=== PATIENT | male | born 1960 | race Caucasian/White ===

== ENCOUNTER 2019-12-25 08:51 | Emergency (ER) | payer OTHER, SELFPAY ==
[~2019-12-25] VITALS: Ht 170.2 cm; Wt 68.0 kg
[2019-12-25 09:08] VITALS: BP_SYST 123
[2019-12-25] MEDS ORDERED: NACL 0.9% 1,000 ML IV ONE (09:45)
[2019-12-25] MEDS ORDERED: KETOROLAC TROMETHAMINE 30 MG VIAL IVP ONE (09:45)
[2019-12-25 10:33] VITALS: BP_SYST 135
== END 2019-12-25 10:33 | disposition home or self-care (01) ==
LOC: SED 08:51
DX: J10.1 Influenza due to other identified influenza virus with other respiratory manifestations (principal); F17.210 Nicotine dependence, cigarettes, uncomplicated; Z20.828 Contact with and (suspected) exposure to other viral communicable diseases
CPT/HCPCS: 96361; 96374; 99283; C9803; J1885; J7030; U0003

== ENCOUNTER 2020-12-27 10:46 | Emergency (ER) | payer OTHER, SELFPAY ==
[~2020-12-27] VITALS: Ht 170.2 cm; Wt 72.6 kg
--- NOTE | 2020-12-27 10:55 | NUR ---
Pt triaged and placed in tent.
--- NOTE | 2020-12-27 11:00 | NUR ---
Pt walked in to ER with c/o flu-like symptoms, cough, cold, congestion and fever x1 week. V/S stable, no acute distress noted.
[2020-12-27 11:22] VITALS: BP_SYST 138
--- NOTE | 2020-12-27 12:10 | NUR ---
ER at bedside examining patient.
[2020-12-27] MEDS ORDERED: ALBMDI INH (13:08)
[2020-12-27] MEDS ORDERED: AMOX500C2 PO (13:08)
--- NOTE | 2020-12-27 13:10 | NUR ---
Patient given written and verbal discharge instructions and verbalizes understanding. ER MD discussed with patient the results and treatment provided. Patient in stable condition. ID arm band removed. Rx of Amoxicillin and Albuterol given. Patient educated on pain management and to follow up with PMD. Pain Scale 0. Opportunity for questions provided and answered. Medication side effect fact sheet provided.
[2020-12-27 13:11] VITALS: BP_SYST 138
== END 2020-12-27 13:10 | disposition home or self-care (01) ==
LOC: SED 10:46
DX: J10.1 Influenza due to other identified influenza virus with other respiratory manifestations (principal); I10 Essential (primary) hypertension; F41.9 Anxiety disorder, unspecified; F17.290 Nicotine dependence, other tobacco product, uncomplicated; Z79.899 Other long term (current) drug therapy; Z20.822 Contact with and (suspected) exposure to COVID-19
CPT/HCPCS: 36415; 86710; 99283

== ENCOUNTER 2021-09-01 09:19 | Emergency (ER) | payer OTHER ==
[~2021-09-01] VITALS: Ht 167.6 cm; Wt 72.6 kg
[~2021-09-01 09:19] MED LIST: ALBMDI INH; AMOX500C2 PO
[2021-09-01 09:33] VITALS: BP_SYST 145
--- NOTE | 2021-09-01 11:06 | NUR ---
61YO M COMES IN WITH C/O WORSENING SOB, DIZZINESS, CHILLS AND UNILATERAL FACIAL SWEATING X 1 MONTH. PT STATES THAT SYMPTOMS STARTED WHEN HE STOPPED TAKING ANTIHYPERTENSIVE MEDS 1 MONTH AGO. PT REPORTS FALLING 3 WEEKS AGO DUE TO LIGHTHEADEDNESS, BUT DENIES HEAD TRAUMA, LOC AND VOMITING. DENIES CHEST PAIN. DENIES FLU-LIKE SYMPTOMS. IN ED, VSS. AOX4. NOT IN RESPIRATORY DISTRESS. CLEAR BREATH SOUNDS. 2 SIDERAILS UP. ERMD MADE AWARE OF PT STATUS. PMH: HTN, ANXIETY, CHRONIC PAIN
[2021-09-01 12:39] LABS: BASOPHILS # (AUTO) 0.1 K/uL (0.0-0.2); BASOPHILS % (AUTO) 1.1 % (0.0-2.0); EOSINOPHILS # (AUTO) 0.2 K/uL (0.0-0.4); EOSINOPHILS % (AUTO) 1.9 % (0.0-4.0); HEMATOCRIT 39.3 % (36-54); HEMOGLOBIN 13.6 g/dL (14.0-18.0); LYMPHOCYTES # (AUTO) 3.7 K/uL (1.0-5.5); LYMPHOCYTES % (AUTO) 40.3 % (20.5-51.5); MEAN CORPUSCULAR HEMOGLOBIN 31 pg (27-31); MEAN CORPUSCULAR HGB CONC 35 % (32-36); MEAN CORPUSCULAR VOLUME 89 fL (79.0-98.0); MONOCYTES # (AUTO) 0.6 K/uL (0.0-1.0); MONOCYTES % (AUTO) 6.7 % (1.7-9.3); NEUTROPHILS # (AUTO) 4.7 K/uL (1.8-7.7); PLATELET COUNT (AUTO) 292 K/uL (130-430); RED CELL DISTRIBUTION WIDTH 13.1 % (9.0-15.0); WHITE BLOOD COUNT (AUTO) 9.3 K/uL (4.8-10.8)
--- NOTE | 2021-09-01 12:48 | NUR ---
EKG given to for interpretation.
[2021-09-01 12:54] LABS: ANION GAP 7 (5-15); CALCIUM 9.2 mg/dL (8.4-11.0); CHLORIDE 102 mmol/L (98-107); CREATININE 0.87 mg/dL (0.55-1.30); GFR AFRICAN AMERICAN 115 mL/min (>90); GLUCOSE 74 mg/dL (70-99); SODIUM SERUM 139 mmol/L (136-145); UREA NITROGEN, BLOOD 16 mg/dL (8-21)
[2021-09-01 13:02] LABS: ALANINE AMINOTRANSFERASE 39 U/L (12-78); ALBUMIN 3.7 g/dL (3.4-4.8); ASPARTATE AMINOTRANSFERASE 21 U/L (10-37); TOTAL BILIRUBIN 0.2 mg/dL (0.0-1.0)
--- NOTE | 2021-09-01 16:04 | NUR ---
COVID SWAB DONE. WALKED TO LAB.
[2021-09-01] MEDS ORDERED: LOSA50TA3 PO (16:14)
[2021-09-01] MEDS ORDERED: ALPR0.5T PO (16:15)
[2021-09-01] MEDS ORDERED: ALPR0.25 PO (16:21)
[2021-09-01] MEDS ORDERED: EFF37 PO (16:21)
[2021-09-01 16:32] VITALS: BP_SYST 145
--- NOTE | 2021-09-01 16:33 | NUR ---
Patient given written and verbal discharge instructions and verbalizes understanding. ER MD discussed with patient the results and treatment provided. Patient in stable condition. ID arm band removed. Rx ofalprazolam, venlafaxine, losartan given. Patient educated on pain management and to follow up with PMD. Pain Scale 0. Opportunity for questions provided and answered. Medication side effect fact sheet provided.
== END 2021-09-01 16:33 | disposition home or self-care (01) ==
LOC: SED 09:19
DX: R42 Dizziness and giddiness (principal); F32.9 Major depressive disorder, single episode, unspecified; Z76.0 Encounter for issue of repeat prescription; Z79.899 Other long term (current) drug therapy; Z20.822 Contact with and (suspected) exposure to COVID-19
CPT/HCPCS: 36415; 70450-TC; 71045; 76376; 80053; 83605; 83880; 84484; 85025; 85379; 93005; 99285